=== PATIENT | male | born 1975 | race Caucasian/White ===

== ENCOUNTER 2016-11-05 18:03 | Inpatient (IN) | payer OTHER ==
[~2016-11-05] VITALS: Ht 190.5 cm; Wt 88.5 kg
[2016-11-06] MEDS ORDERED: MAGNESIUM HYDROXIDE 30 ML LIQUID UDC PO PRN (14:15)
[2016-11-06] MEDS ORDERED: LOPERAMIDE HCL 2 MG CAPSULE PO PRN ×2 (14:15)
[2016-11-06] MEDS ORDERED: PROMETHAZINE HCL 25 MG/1 ML VIAL IM PRN (14:15)
[2016-11-06] MEDS ORDERED: THIAMINE HCL 200 MG/2 ML VIAL IM ONE (14:15)
[2016-11-06] MEDS ORDERED: HYDROXYZINE PAMOATE 25 MG CAPSULE PO PRN (14:15)
[2016-11-06] MEDS ORDERED: LORAZEPAM 1 MG TABLET PO PRN ×2 (14:15)
[2016-11-06] MEDS ORDERED: CLONIDINE HCL 0.1 MG TABLET PO PRN (14:15)
[2016-11-06] MEDS ORDERED: MAG HYDROX/AL HYDROX/SIMETH 30 ML LIQUID UDC PO PRN (14:15)
[2016-11-06] MEDS ORDERED: MIRALAX 17 GM POWD.PACK PO PRN (14:15)
[2016-11-06] MEDS ORDERED: ALBUTEROL SULFATE 8 GM HFA.AER.AD IH PRN (14:15)
[2016-11-06] MEDS ORDERED: IBUPROFEN 400 MG TABLET PO PRN (14:15)
[2016-11-06] MEDS ORDERED: LORAZEPAM 2 MG/1 ML VIAL IM PRN (14:15)
[2016-11-06] MEDS ORDERED: DICYCLOMINE HCL 20 MG TABLET PO PRN (14:15)
[2016-11-06] MEDS ORDERED: ACETAMINOPHEN 325 MG TABLET PO PRN (14:15)
[2016-11-06] MEDS ORDERED: diphenhydrAMINE 50 MG CAPSULE PO PRN (14:15)
[2016-11-06] MEDS ORDERED: ONDANSETRON ODT 4 MG TAB.RAPDIS SL PRN (14:15)
[2016-11-06 15:00] VITALS: BP 119/71
--- NOTE | 2016-11-06 15:00 | NUR ---
ADMISSION NOTE ALLERGY-PCN/NKFA STATUS-FULL CODE HEIGHT-6'3 WEIGHT-195IBS B/P-119/71,HR-83,TEMP-98.0,RR-16, SPO2-98%, PAIN-0/10 PCP-KATRINA VALVERDE [facility]- Stroke,hypertension,Dyslipidemia, Chronic obstructive pulmonary disease, complicated by ruptured pulmonary bleb causing a spontaneous pneumothorax, Allergic rhinitis ,Depressive disorder FAMILY HISTORY-Diabetes mellitus, type 2,Alcoholism CIWA-2 41-year-old male admitted to [facility] for ETOH dependence, under care of Dr. Knowles. upon arrival pt was able to provide urine for drug screen with no complain of burning or discomfort. Orientation to the unit provided. Skin assessment done skin noted intact. Pt denied any SI/HI ideation. Pt denied hospitalization the last month. Pt presented alert awake oriented x4 in stable condition. Vital signs were stable. Pt's abdomen soft and non distended. Bowel sounds heard in all quadrants, Respirations are even unlabored. Lungs clear upon auscultation. Pt was cooperative to staff and able to make eye contact. Pt able to move all extremities without any pain or discomfort.pt reported receiving FLU in May 2016, but unable to recall about Pneumonia vaccine. Pt reported smoke daily 1 pack a day and does ant want to quit smoking at this time. Pt reported struggled with multiple attempts at sobriety, the longest being for one month, achieved one year ago. Pt also reported this is his first time in treatment. The patient denied any history of withdrawal-induced seizures. Pt brought medications from home and reconciled. The patient reported drinking alcohol at age [age] years old, but did not develop a pattern of heavy until age 36 and has been struggling with alcoholism since that time. Pt reported Drug abused history as: 1.ETOH(BEER/MIX DRINKS)-8 to 10 beers daily, 5 to 6 8oz glasses of mix drinks, last used was -11/05/16 4 shots of 16 oz glasses of mix drink at 11/05/16 at 2200 2.MARIJUANA-3 to 4 joints daily on weekend 7 to 8, last used was 3 Wax at 2100 11/05/16 Dr Knowles saw pt and with new orders. Pt currently not on any taper but PRN's available for withdrawal. Pt is comfortable resting in his room, Orientation to the room and equipment provided, safety measures in place, call light within reach. Will cont to monitor.
[2016-11-06] MEDS ORDERED: MELA5TAB PO (15:14)
[2016-11-06] MEDS ORDERED: CETI1TAB9 PO (15:14)
[2016-11-06] MEDS ORDERED: ALBUTEROL SULFATE 2.5 MG/3 ML NEBU NEB PRN (15:15)
[2016-11-06] MEDS ORDERED: LISI10TA5 PO (15:20)
[2016-11-06] MEDS ORDERED: CLOT10TR PO (15:20)
[2016-11-06] MEDS ORDERED: ATOR20TA PO (15:20)
[2016-11-06] MEDS ORDERED: [UNRECOGNIZED DRUG - OTHER] (15:20)
[2016-11-06] MEDS ORDERED: FLUT1DIS28 INH (15:20)
[2016-11-06 16:34] LABS: *AMPHETAMINE, URINE NEGATIVE (NEGATIVE); *BARBITURATE, URINE NEGATIVE (NEGATIVE); *CANNABINOID, URINE POSITIVE (NEGATIVE); *COCCAINE, URINE NEGATIVE (NEGATIVE); *OPIATE, URINE NEGATIVE (NEGATIVE); *PHENCYCLIDINE SCREEN,URINE NEGATIVE (NEGATIVE)
[2016-11-06] MEDS ORDERED: ASPI-612 PO (16:44)
[2016-11-06 16:54] LABS: BASOPHILS # (AUTO) 0.1 K/uL (0.0-0.2); BASOPHILS % (AUTO) 1.2 % (0.0-2.0); EOSINOPHILS # (AUTO) 0.3 K/uL (0.0-0.7); EOSINOPHILS % (AUTO) 3.9 % (0.0-7.0); HEMATOCRIT 43.7 % (40.0-50.0); HEMOGLOBIN 14.3 g/dL (14.0-18.0); LYMPHOCYTES # (AUTO) 2.9 K/uL (0.8-4.8); LYMPHOCYTES % (AUTO) 32.6 % (20.5-51.5); MEAN CORPUSCULAR HEMOGLOBIN 28.2 uug (27.0-31.0); MEAN CORPUSCULAR HGB CONC 33 g/dL (32.0-37.0); MEAN CORPUSCULAR VOLUME 86.3 fL (82.0-92.0); MONOCYTES # (AUTO) 0.7 K/uL (0.1-1.30); MONOCYTES % (AUTO) 8.3 % (0.0-11.0); NEUTROPHILS # (AUTO) 4.8 K/uL (1.8-8.9); PLATELET COUNT (AUTO) 222 K/uL (150-450); RED BLOOD CELL COUNT(AUTO) 5.07 MIL/uL (4.70-6.10); RED CELL DISTRIBUTION WIDTH 13.1 % (11.5-14.5); WHITE BLOOD COUNT (AUTO) 8.8 K/uL (4.0-11.2)
[2016-11-06 17:03] LABS: ETHANOL < 3 MG/DL (0-0)
[2016-11-06 17:10] LABS: ALANINE AMINOTRANSFERASE 21 U/L (16-63); ALBUMIN 4.1 g/dL (3.4-5.0); ALKALINE PHOSPHATASE 96 U/L (50-136); AMYLASE 95 U/L (25-115); ASPARTATE AMINOTRANSFERASE 22 U/L (15-37); BILIRUBIN,TOTAL 0.3 mg/dL (0.2-1.0); CALCIUM 8.9 mg/dL (8.5-10.1); CARBON DIOXIDE 30 mmol/L (21-32); CHLORIDE 101 mmol/L (98-107); CHOLESTEROL 163 mg/dL (<200); GFR 83 mL/min (>60); GLUCOSE 87 mg/dL (74-106); HDL CHOLESTEROL 48 mg/dL (40-60); LIPASE 548 U/L (73-393); POTASSIUM 4.2 mmol/L (3.5-5.1); SODIUM SERUM 139 mmol/L (136-145); TOTAL PROTEIN, SERUM 7.6 g/dL (6.4-8.2); TRIGLYCERIDES 104 MG/DL (30-150); UREA NITROGEN, BLOOD 12 mg/dL (7-18)
[2016-11-06 17:23] LABS: HIV-1 p24 ANTIGEN NON REACTIVE (NONREACTIVE); HIV-1/2 ANTIBODY NON REACTIVE (NONREACTIVE); THYROID STIMULATING HORMONE 1.743 mIU/mL (0.358-3.740)
--- NOTE | 2016-11-06 19:14 | NUR ---
END OF SHIFT REPORT Gave report to night nurse, 41 year old male admitted for ETOH dependence, allergic to PCN/Full code, regular diet. Pt currently not on any taper but PRN's available for s/s of withdrawal. Skin intact warm and dry to touch. During shift pt received Thiamine IM injection tolerated well, injection site clean and dry no s/s of bleeding no swelling noted. Pt's total intake 796ml, voided x3. Last CIWA-2. All needs have been met, Safety measures in place, call light within reach. pt endorsed to night nurse in stable condition.
--- NOTE | 2016-11-06 19:45 | NUR ---
START OF SHIFT NOTE Received report from day shift nurse. Pt is 41 y op male admitted on 11/06/16 for ETH dependence. Pt reported drinking 8-10 beers a day and/ or 5-6 8 oz glasses of mixed drinks. Pt has prn Ativan available for withdrawals s/s management based on CIWA scores. Pt in room, aaox4. Pt reports mild anxiety, educated on deep breathing. Skin intact, warm, dry. No tremors noted. Pt denies burning/ tingling/ itching. Lung sounds clear bilat, heart rate regular. Bowel sounds active x 4, pt denies n/v/d. Pt denies urinary difficulties. PMH of stroke, HTN, dyslipidemia, COPD, allergic rhinitis, depression. Allergic to PCN. Pt is full code, regular diet. Fall precautions in place. CAll light within reach, side rails up x 2, bed locked in lowest position. Will continue with plan of care
[2016-11-06 20:00] VITALS: BP 134/83
[2016-11-06] MEDS: PATIENT MAY USE OWN MED- MD OK PO SCH ×2 (21:00→21:14)
[2016-11-06] MEDS: PATIENT MAY USE OWN MED- MD OK INH SCH (21:14)
[2016-11-06] MEDS ORDERED: PATIENT MAY USE OWN MED- MD OK PO PRN (21:45)
[2016-11-07] VITALS: BP 120/77
[2016-11-07] MEDS ORDERED: LISINOPRIL 10 MG TABLET ONE (00:22)
--- NOTE | 2016-11-07 04:00 | NUR ---
VS AND SHAHIDA Pt refused VS. Pt requested no to be bothered at this time. RR unlabored and even. Fall precautions in place. Will continue to monitor Addendum: 11/07/16 at 0707 by SPARKLE CALDERON RN Amended: Links added.
--- NOTE | 2016-11-07 07:45 | NUR ---
END OF SHIFT NOTE Pt is 41 y op male admitted on 11/06/16 for ETH dependence. Pt reported drinking 8-10 beers a day and/ or 5-6 8 oz glasses of mixed drinks. Pt has prn Ativan available for withdrawals s/s management based on CIWA scores. Pt had CIWA scores 2 throughout the shift, mostly d/t anxiety. Pt behaved rudely towards the nurse, was unhappy with medication schedule and did not cooperate; refused to take medications from hospital pharmacy; refused Lisinopril scheduled at 2100. VSS. Pt slept for 5 hrs. PMH of stroke, HTN, dyslipidemia, COPD, allergic rhinitis, depression. Allergic to PCN. Pt is full code, regular diet. Fall precautions in place. Report endorsed to day shift nurse
[2016-11-07 08:00] VITALS: BP 122/82
--- NOTE | 2016-11-07 08:00 | NUR ---
START OF SHIFT NOTE Received report from night nurse, 41 year old male admitted on 11/06/16 for ETOH dependence. Allergic to PCN, Full code, Regular diet. PMH of stroke, HTN, dyslipidemia, COPD, allergic rhinitis, depression. Pt reported drinking 8-10 beers a day and/ or 5-6 8 oz glasses of mixed drinks. Pt currently not on any taper but PRN's available for withdrawal. Per endorsement pt was rude towards the nurse, not cooperative with medications and refused to take medications from hospital pharmacy and wants to take his own, refused Lisinopril scheduled at 2100. aware. VSS. Pt slept for 5 hrs. Received pt alert awake oriented x4 in stable condition. Denies any pain no tremors noted. Safety measures in place, call light within reach. Will cont to monitor.
[2016-11-07] MEDS ORDERED: PATIENT MAY USE OWN MED- MD OK PO SCH ×2 (09:00)
[2016-11-07] MEDS ORDERED: TUBERCULIN,PURIF.PROT.DERIV. 5 TU/0.1 ML TEST ID ONE (09:00)
[2016-11-07] MEDS: FOLIC ACID 1 MG TABLET PO SCH (09:00)
[2016-11-07] MEDS: MULTIVITAMINS,THERAPEUTIC TABLET PO SCH (09:00)
--- NOTE | 2016-11-07 09:00 | NUR ---
REFUSED MEDS Pt refused scheduled medications MVI/Folic acid, offered x3 risk and benefits. Pt verbalized understanding, still refused. aware.
[2016-11-07] MEDS: PATIENT MAY USE OWN MED- MD OK INH SCH ×2 (09:08→21:46)
[2016-11-07] MEDS: PATIENT MAY USE OWN MED- MD OK PO SCH ×4 (09:09→21:45)
[2016-11-07] MEDS: THIAMINE HCL 100 MG TABLET PO SCH (09:12)
[2016-11-07 12:00] VITALS: BP 137/90
[2016-11-07 16:00] VITALS: BP 143/86
--- NOTE | 2016-11-07 17:03 | NUR ---
CARE ENDORSED All pertinent information given and care endorsed to nurse in charge.
--- NOTE | 2016-11-07 17:15 | NUR ---
START OF SHIFT Received endorsement from day shift nurse. Pt is participating in activities. He is a 41 yo male admitted to [facility] on 11/06 for ETOH dependence. He is A&O x4 and ambulatory. Allergies to PCN's, full code status, and on a regular diet. He has a PMH of stroke, HTN, dyslipidemia, COPD, pneumothorax, allergic rhinitis, and depression. On admission he admitted to drinking 8-10 beers per day and 5-6 of 8oz mixed drinks per day for 5 years. Pt was ordered PRN medications and is scheduled for discharge tomorrow. Minimal s/s of withdrawal noted. Fall precautions in place. Bed is down with call light in reach.
[2016-11-07 17:25] LABS: *AMPHETAMINE, URINE NEGATIVE (NEGATIVE); *BARBITURATE, URINE NEGATIVE (NEGATIVE); *CANNABINOID, URINE POSITIVE (NEGATIVE); *COCCAINE, URINE NEGATIVE (NEGATIVE); *OPIATE, URINE NEGATIVE (NEGATIVE); *PHENCYCLIDINE SCREEN,URINE NEGATIVE (NEGATIVE)
[2016-11-07 20:00] VITALS: BP 137/82
--- NOTE | 2016-11-07 21:47 | NUR ---
PRN Melatonin administration Pt c/o inability to sleep and requested PRN Melatonin.
--- NOTE | 2016-11-08 | NUR ---
0000 Vitals and CIWA deferred Pt refused to be woken for 0400 Vitals. Respirations even and unlabored. Bed is down with call light in reach. Addendum: 11/08/16 at 0555 by WILLIAN AN RN Correction: Pt refused to be woken for 0000 Vitals.
--- NOTE | 2016-11-08 04:00 | NUR ---
0400 Vitals and CIWA deferred Pt refused to be woken for 0400 Vitals. Respirations even and unlabored. Bed is down with call light in reach.
--- NOTE | 2016-11-08 07:15 | NUR ---
END OF SHIFT Report provided to day shift nurse. Pt is lying in bed resting. He is a 41 yo male admitted to [facility] on 11/06 for ETOH dependence. He is A&O x4 and ambulatory. Allergies to PCN's, full code status, and on a regular diet. He has a PMH of stroke, HTN, dyslipidemia, COPD, pneumothorax, allergic rhinitis, and depression. On admission he admitted to drinking 8-10 beers per day and 5-6 of 8oz mixed drinks per day for 5 years. PRN medications were ordered for management of withdrawal symptoms. Pt is scheduled for discharge today. PRN Melatonin administered for sleep. Last CIWA was 1. He drank 796mL and slept [address] hours. Fall precautions in place. Bed is down with call light in reach.
--- NOTE | 2016-11-08 07:30 | NUR ---
start of sift note: received pt from maintenance supervisor 2nd shift nurse, pt is in stable condition no s/s of pain or discomfort. pt is admitted to [facility] for ETOH withdrawal/dependence. pt is set for discharge will assist pt in discharging and will continue to monitor pt for any changes.
--- NOTE | 2016-11-08 08:17 | NUR ---
CXR pending, pt currently not in the room.
[2016-11-08] MEDS: THIAMINE HCL 100 MG TABLET PO SCH (09:00)
[2016-11-08] MEDS: MULTIVITAMINS,THERAPEUTIC TABLET PO SCH (09:00)
[2016-11-08] MEDS: FOLIC ACID 1 MG TABLET PO SCH (09:00)
[2016-11-08] MEDS: PATIENT MAY USE OWN MED- MD OK INH SCH (09:32)
[2016-11-08] MEDS: PATIENT MAY USE OWN MED- MD OK PO SCH ×2 (09:33)
--- NOTE | 2016-11-08 10:20 | NUR ---
discharge note: pt left the unit in stable condition no s/s of pain or discomfort, or any withdrawal symptoms. pt teaching administered and pt verbalized understanding. pt let with all personal belongings with V/S WNL. pt will be transferred home via private car
[2016-11-08 15:09] LABS: HCV AB <0.1 s/co ratio (0.0-0.9); HEPATITIS B CORE AB, IgM Negative (Negative); HEPATITIS B SURFACE AG Negative (Negative)
== END 2016-11-08 10:20 | disposition other institution (70) | DRG 895 ==
LOC: SRC 11-06 13:54
PROVIDERS: ADMIT Internal Medicine; ATTEND Internal Medicine
PROC: HZ2ZZZZ Detoxification Services for Substance Abuse Treatment (ICD-10-PCS; principal; 2016-11-06)
PROC: HZ31ZZZ Individual Counseling for Substance Abuse Treatment, Behavioral (ICD-10-PCS; 2016-11-07)
DX: F10.230 Alcohol dependence with withdrawal, uncomplicated (principal); K85.20 Alcohol induced acute pancreatitis without necrosis or infection; F12.10 Cannabis abuse, uncomplicated; Y90.9 Presence of alcohol in blood, level not specified; J44.9 Chronic obstructive pulmonary disease, unspecified; Z86.73 Personal history of transient ischemic attack (TIA), and cerebral infarction without residual deficits; Z83.3 Family history of diabetes mellitus; Z81.1 Family history of alcohol abuse and dependence; F16.10 Hallucinogen abuse, uncomplicated; F17.210 Nicotine dependence, cigarettes, uncomplicated; I10 Essential (primary) hypertension; E78.5 Hyperlipidemia, unspecified; F41.9 Anxiety disorder, unspecified; Z81.8 Family history of other mental and behavioral disorders; Z91.19 Patient's noncompliance with other medical treatment and regimen; F13.90 Sedative, hypnotic, or anxiolytic use, unspecified, uncomplicated; J30.2 Other seasonal allergic rhinitis; F32.9 Major depressive disorder, single episode, unspecified
CPT/HCPCS: 36415; 70030-TC; 80307; 80346; 80349; 83690; 83735; 84443; 85025; 86580; 86592; 86705; 86803; 87340; 87806; G6040-TC; J3411